=== PATIENT | female | born 1975 | race Caucasian/White ===

== ENCOUNTER 2017-09-13 11:52 | Emergency (ER) | payer MEDICAID ==
[~2017-09-13] VITALS: Ht 152.4 cm; Wt 64.0 kg
[2017-09-13 12:00] VITALS: BP 127/82; Ht 152.4 cm; Wt 64.0 kg
== END 2017-09-13 16:24 | disposition left against medical advice (07) ==
LOC: ED 11:52
DX: Z53.21 Procedure and treatment not carried out due to patient leaving prior to being seen by health care provider (principal)